=== PATIENT | male | born 1975 | race Two or more races ===

== ENCOUNTER 2016-10-26 09:20 | Emergency (ER) | payer SELFPAY ==
[~2016-10-26] VITALS: Wt 79.0 kg
[~2016-10-26 09:20] MED LIST: ALBU8.5H5 IH; AZIT250T94 PO; PRED50 PO
[2016-10-26] MEDS ORDERED: ALBUTEROL 0.5% (NEB) 2.5 MG/0.5 ML AMP NEB STA ×2 (11:10→12:04)
[2016-10-26] MEDS ORDERED: IPRATROPIUM (NEB) 0.5 MG/2.5 ML AMP NEB STA (11:10)
[2016-10-26] MEDS ORDERED: predniSONE 20 MG TAB PO ONE (11:30)
--- NOTE | 2016-10-26 11:54 | ERD ---
ER Documentation Chief Complaint Date/Time DATE: 10/26/16 TIME: 11:53 Chief Complaint ASTHMA HPI This is a 41-year-old male who presents to the emergency room for evaluation of shortness of breath. The patient does state he has a history of asthma. Denies being on any inhaler medications at home and came to the ER for evaluation. He does say he is wheezing and his wheezing is usually relieved with breathing treatments. The patient denies any fevers or chest pain or palpitations at this time. ROS All systems reviewed and are negative except as per history of present illness. Medications Home Meds Active Scripts Azithromycin* (Zithromax*) 250 Mg Tablet, 250 MG PO .ZPACK DIRECTED, #6 TAB TAKE 500 MG (2 TABS) THE FIRST DAY THEN 250 MG (1 TAB) DAYS 2-5 Prov:SUNIL GALARZA 07/16/15 Prednisone (Prednisone) 50 Mg Tab, 50 MG PO once daily, #5 TAB Prov:SUNIL GALARZA 07/16/15 Albuterol Sulfate* (Albuterol Sulfate* HFA) 8.5 Gm Hfa.aer.ad, 2 PUFF IH Q6, #1 EA Prov:MICHELLSUNIL SHELL 07/16/15 Allergies Allergies: Coded Allergies: No Known Allergy (Unverified , 10/26/16) PMhx/Soc Medical and Surgical Hx: pt denies Surgical Hx History of Surgery: No Anesthesia Reaction: No Hx Neurological Disorder: No Hx Respiratory Disorders: Yes (asthma) Hx Cardiac Disorders: No Hx Psychiatric Problems: No Hx Miscellaneous Medical Probl: No Hx Alcohol Use: Yes Hx Substance Use: No Hx Tobacco Use: No Smoking Status: Never smoker Physical Exam Vitals Vital Signs Date Time Temp Pulse Resp B/P Pulse Ox O2 Delivery O2 Flow Rate FiO2 10/26/16 11:18 115 19 96 21 10/26/16 09:22 98.0 123 22 129/69 99 Physical Exam INITIAL VITAL SIGNS: Reviewed by me GENERAL: The patient is well developed and appropriate for usual state of health in no apparent distress, pleasant affect HEENT: Pupils equal, round, and reactive to light. EOMI. There is no scleral icterus. NECK: C-spine is soft and supple, there is no meningismus. There is no cervical lymphadenopathy. LUNGS: Diminished bilaterally with diffuse wheezing auscultated throughout bilateral lung ag HEART: Regular rate and rhythm, no murmurs, clicks, rubs or gallops. ABDOMEN: Soft, non-tender, non-distended. There are bowel sounds in all four quadrants. No rebound or guarding. EXTREMITIES: There is no peripheral cyanosis or edema. No focal swelling or erythema. NEUROLOGICAL: The patient moves all four extremities with 5/5 strength. Cranial nerves II - XII are intact. Normal gait. Alert and oriented SKIN: There is no apparent rash or petechiae. HEME/LYMPHATIC: There is no evidence of excessive bruising or lymphedema. PSYCHIATRIC: The patient does not appear anxious or depressed. Results 24 hrs Current Medications Medications (Trade) Dose Ordered Sig/Meera Route PRN Reason Start Time Stop Time Status Last Admin Dose Admin Prednisone (Prednisone) 60 mg ONCE ONCE PO 10/26/16 11:30 10/26/16 11:31 DC 10/26/16 11:25 Albuterol (Proventil 0.5% (Neb)) 10 mg ONCE STAT NEB 10/26/16 11:10 10/26/16 11:11 DC 10/26/16 11:18 Ipratropium [place] (Atrovent 0.02% (Neb)) 1.5 mg ONCE STAT NEB 10/26/16 11:10 10/26/16 11:11 DC 10/26/16 11:18 Procedures/MDM This 41-year-old male presents to the emergency room for evaluation of wheezing and shortness of breath. When I evaluated him he did have diffuse wheezing. The patient was given prednisone p.o., and albuterol and Atrovent treatment here in the emergency room. Upon my reevaluation this patient's wheezing has significantly improved. He will be discharged home at this time with a prescription for prednisone, and albuterol inhaler. He is not hypoxic, no respiratory distress, not tachypneic or in risk of significant respiratory compromise at this time. Departure Diagnosis: Primary Impression: Acute asthma exacerbation Condition: Stable REID RODRIGUEZ DO Oct 26, 2016 11:54
[2016-10-26] MEDS ORDERED: PRED20TA PO (12:01)
[2016-10-26] MEDS ORDERED: ALBU8.5H3 INH (12:01)
[2016-10-26 12:59] VITALS: BP 128/79; PULSE 102; RESP 18; TEMP 97.6
== END 2016-10-26 12:59 | disposition home or self-care (01) ==
LOC: E/R 09:20 → FTE 12:59
DX: J45.901 Unspecified asthma with (acute) exacerbation (principal)
CPT/HCPCS: 94644; 94645; 99284; J7512